=== PATIENT | male | born 1945 | race Caucasian/White ===

== ENCOUNTER → 2016-12-08 | Outpatient (CLI) | payer MEDICARE, OTHER ==
[~2016-12-08] MED LIST: ALPRAZOLAM PO; ASPIRIN EC81 M1 PO; ASPIRIN81 M1 PO; BACTRIM DS TABL1 TA1 PO; BENADRYL25 M1 PO; CELECOXIB200 M1 PO; CYMBALTA30 M1 PO; ENDOCET 10-3251 TAB PO; LEXAPRO PO; LIALDA1.2 G PO; LIPITOR PO; LISINOPRIL20 MG PO; LORTAB 10-5001 EACH PO; LORTAB 5/500 TA1 TA2 PO; MERCAPTOPURINE; MULTI-DAY VITAM1 TAB PO; MULTIVITAMIN W-1 TAB PO; NEURONTIN100 MG PO; OXYCODONE-ACET1 EAC1 PO; PURINETHOL50 M1 PO; REMICADE; VICODIN 5/1 TAB 5/50 PO; VIT D3 PO; VITAMIN D1000 UNI1 PO; WELLBUTRIN XL150 M1 PO; [UNRECOGNIZED DRUG - OTHER]
[2016-12-08 09:06] LABS: HEMATOCRIT 40.8 % (38.0-50.0); HEMOGLOBIN 13.1 gm/dL (13.0-16.0); MEAN CELL VOLUME 90.2 FL (83-96); MEAN CORPUSCULAR HGB CONC 32.2 g/dL (30-36); MEAN PLATELET VOLUME 6.7 FL (6.5-11.5); RED BLOOD COUNT 4.52 X10e (3.90-5.60); RED CELL DISTRIBUTION WIDTH 14.4 % (11.0-15.5); WHITE BLOOD COUNT 9.4 X10e3 (4.0-10.5)
[2016-12-08 09:47] LABS: ALBUMIN SERUM 3.6 g/dL (3.5-5.0); BILIRUBIN,TOTAL 0.7 mg/dL (0.2-2.0); BUN/CREATININE RATIO 12.22; CALCIUM SERUM 9.1 mg/dL (8.4-10.2); CREATININE SERUM 0.9 mg/dL (0.6-1.4); POTASSIUM 4.1 mmol/L (3.5-5.1); PROTEIN TOTAL SERUM 8.4 g/dL (6.0-8.3)
== END | disposition home or self-care (01) ==
LOC: CSSDAY 08:42
PROVIDERS: Nurse Practitioner
DX: K51.90 Ulcerative colitis, unspecified, without complications (principal); Z79.899 Other long term (current) drug therapy
CPT/HCPCS: 36415; 80053; 85027; 96413; 96415; J1745

== ENCOUNTER → 2017-01-23 | Outpatient (CLI) | payer MEDICARE, OTHER ==
--- NOTE | ~2017-01-23 | CT57 ---
[facility] A Service of [facility] RADIOLOGY TEXT RESULTS PATIENT: CLARK SILVA LOCATION: [facility] : 43 UNIT #: [id number] AGE: [address]: Davon Coronel MD SEX: M ORDER DR: [id number] [facility] [address] [place], [place] [address] [id number] O MR#: [id number] [facility] #: [id number] NAME: CLARK SILVA : 1945 SEX: M STUDY DATE/TIME: 01/23/2017 10:47 UNIT: [facility] ROOM: STUDY DESCRIPTION: CT Chest Wo Cont Attending Physician: Davon Coronel M.D. Referring Physician: Davon Coronel M.D. Ordering Physician: Davon Coronel M.D. Primary Care Physician: No Primary Care Physician MEDICAL IMAGING REPORT This report is preliminary unless electronic signature is present EXAM CT chest without contrast. INDICATION Thoracic aortic aneurysm. Patient has also a shortness breath for [address] exam was performed with one or more of the following radiation dose reduction techniques: automatic exposure control, adjustment of mA and/or kV according to patient size, and iterative reconstruction. On axial CT imaging was obtained from thoracic inlet through the dome of the diaphragm. No intravenous contrast material was administered. There is stable aneurysmal dilatation of the thoracic aorta. Aortic root measures 4.5 cm previously 4.6 cm. The ascending aorta measures 4.4 cm previously 4.4 cm. The proximal descending thoracic aorta measures 3.6 cm previously 3.7 cm mid descending thoracic aorta measures within normal size limits at 2.9 cm, and distal descending thoracic aorta measures up to 3.1 cm and measurement are stable. 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 The thyroid gland trachea esophagus appear unremarkable. There is no pleural or pericardial effusion. There are coronary artery calcifications. Mediastinal lymph nodes do not appear pathologically enlarged. Images through the upper abdomen do not demonstrate any acute abnormalities. There is a stable cyst within the left hepatic lobe. There are a few scattered noncalcified pulmonary nodules which are identified within both lungs which have been unchanged since 2013 and thus are benign. No new pulmonary nodules or masses are seen. Review of bony windows demonstrates discogenic degenerative disease of the spine. No focal aggressive osseous abnormalities are seen. IMPRESSION [facility] A Service of [facility] RADIOLOGY TEXT RESULTS PATIENT: CLARK SILVA LOCATION: [facility] : 43 UNIT #: [id number] AGE: [address]: Davon Coronel MD SEX: M ORDER DR: 1. Stable aneurysmal dilatation of the thoracic aorta is noted above. 2. Aberrant right subclavian artery. Dictated by... Debbie Chavez M.D. THIS IS AN ELECTRONICALLY VERIFIED REPORT Debbie Chavez M.D. at 01/24/2017 5:25 PM AFF/ea TD: 01/23/2017 20:01 JOB #: [id number] MEDICAL IMAGING REPORT Page 1 of 1 COPY
== END | disposition home or self-care (01) ==
LOC: CCAT 09:57
DX: I71.2 Thoracic aortic aneurysm, without rupture (principal); Q27.8 Other specified congenital malformations of peripheral vascular system; Z88.0 Allergy status to penicillin
CPT/HCPCS: 71250

== ENCOUNTER → 2017-03-02 | Outpatient (CLI) | payer MEDICARE, OTHER ==
[2017-03-02 13:07] LABS: BASOPHIL# 0.1 X10e3 (0-0.3); BASOPHIL% 1.4 % (0-2.5); EOSINOPHIL# 0.7 X10e3 (0-0.7); EOSINOPHIL% 6.8 % (0.0-7.0); HEMATOCRIT 39.1 % (38.0-50.0); HEMOGLOBIN 12.8 gm/dL (13.0-16.0); LYMPHOCYTE# 1.8 X10e3 (1.0-3.5); LYMPHOCYTE% 18.7 % (17.0-45.0); MEAN CELL VOLUME 89.7 FL (83-96); MEAN CORPUSCULAR HEMOGLOBIN 29.3 PG (28-34); MEAN CORPUSCULAR HGB CONC 32.7 g/dL (30-36); MEAN PLATELET VOLUME 6.6 FL (6.5-11.5); MONOCYTE# 0.9 X10e3 (0-1.0); MONOCYTE% 9.7 % (3.0-12.0); NEUTROPHIL# 6.2 X10e3 (1.5-7.1); NEUTROPHIL% 63.4 % (40-75); PLATELET COUNT 375 X10e3 (140-420); RED BLOOD COUNT 4.36 X10e (3.90-5.60); RED CELL DISTRIBUTION WIDTH 14.4 % (11.0-15.5); WHITE BLOOD COUNT 9.7 X10e3 (4.0-10.5)
[2017-03-02 13:09] LABS: DIFF IND NO
[2017-03-02 13:48] LABS: BUN/CREATININE RATIO 17.5; CALCIUM SERUM 9.3 mg/dL (8.4-10.2); CREATININE SERUM 0.8 mg/dL (0.6-1.4); GLOM FILT RATE Estimated 89.3 mL/min (>60)
== END | disposition home or self-care (01) ==
LOC: CSSDAY 08:54
PROVIDERS: Internal Medicine Gastroenterology
DX: K51.90 Ulcerative colitis, unspecified, without complications (principal); Z79.899 Other long term (current) drug therapy
CPT/HCPCS: 80048; 85025; 86140; 96413; 96415; J1745

== ENCOUNTER → 2017-05-14 | Outpatient (CLI) | payer MEDICARE, OTHER ==
--- NOTE | ~2017-05-14 | ST ---
Unit #: [id number] #: [id number] Patient: CLARK SILVA [id number] [address] [address] [id number] O MR#: [id number] NAME: CLARK SILVA : 1945 SEX: M STUDY DATE/TIME: UNIT: [facility] ROOM: STUDY DESCRIPTION: Stress Test Attending Physician: Tim Ahuja M.D. Referring Physician: Tim Ahuja M.D. Primary Care Physician: Ryan Gotti D.O. CARDIOLOGY REPORT EXAM ECG Portion of Nuclear Stress Test INDICATION Chest discomfort/chest pain. SUMMARY The patient underwent Lexiscan protocol. Patient's resting heart rate was 82 beats per minute which increased to 103 beats per minute representing 69% of the maximum age predicted heart rate. Patient's resting blood pressure 129/84 mmHg which increased to 145/78 mmHg. Patient's resting ECG shows normal sinus rhythm with isolated PVCs. Normal ST segments were observed. With Lexiscan infusion, patient continues to remain in normal sinus rhythm with preserved ST segments. Increased ventricular ectopy was noted during infusion and in recovery. Also, ventricular couplets were seen. There is no supraventricular ectopy noted. There is no pauses noted. CONCLUSION 1. Negative ECG portion of the Lexiscan study for ischemia. 2. Perfusion imaging dictated below. Dictated by... Osmin Bray/jr TD: 05/15/2017 06:08 JOB #: [id number] Unit #: [id number] #: [id number] Patient: CLARK SILVA CARDIOLOGY REPORT Page 1 of 1 X TRISTAN AREVALO MD CARDIOLOGY REPORT
--- NOTE | ~2017-05-14 | TH ---
Unit #: [id number] #: [id number] Patient: CLARK SILVA [id number] [address] [address] [id number] O MR#: [id number] NAME: CLARK SILVA : 1945 SEX: M STUDY DATE/TIME: UNIT: [facility] ROOM: STUDY DESCRIPTION: Perfusion Study Attending Physician: Tim Ahuja M.D. Referring Physician: Tim Ahuja M.D. Primary Care Physician: Ryan Gotti D.O. CARDIOLOGY REPORT EXAM Perfusion Study INDICATION Chest discomfort/chest pain. SUMMARY The patient received a resting dose of 11 mCi and a stress dose of 32.2 mCi. On gated imaging, the patient appears to have global hypokinesis noted with an LVEF of 41%. On perfusion imaging, comparing rest and stress imaging, there appears to be no reversible perfusion defects noted. On stress portion, LV cavity does appear to be slightly notched compared to resting images concerning for transient ischemic dilatation. CONCLUSION 1. Abnormal Lexiscan. 2. Depressed LVEF of 41%. 3. No obvious reversible perfusion defects concerning for ischemia noted, but mild transient LV cavity dilatation seen with stress. 4. Clinical correlation needed. Dictated by... Osmin Bray/jr TD: 05/15/2017 06:13 JOB #: [id number] Unit #: [id number] #: [id number] Patient: CLARK SILVA CARDIOLOGY REPORT Page 1 of 1 X TRISTAN AREVALO MD CARDIOLOGY REPORT
== END | disposition home or self-care (01) ==
LOC: CNUC 07:49
DX: R07.9 Chest pain, unspecified (principal)
CPT/HCPCS: 78452; 93017; A9500; J2785

== ENCOUNTER → 2017-05-25 | Outpatient (CLI) | payer MEDICARE, OTHER | END | disposition home or self-care (01) | LOC: CSSDAY 07:15 | DX: K51.90 Ulcerative colitis, unspecified, without complications (principal); Z79.899 Other long term (current) drug therapy | CPT/HCPCS: 96413; 96415; J1745 ==